=== PATIENT | female | born 1990 | race Asian ===

== ENCOUNTER 2020-02-25 03:20 | Inpatient (IN) ==
[2020-02-25] MEDS: LACTATED RINGER'S 1,000 ML IV PRN ×2 (03:37→07:41)
[2020-02-25] MEDS ORDERED: fentaNYL citrate 100 MCG/2 ML VIAL ONE (03:45)
[2020-02-25] MEDS ORDERED: ePHEDrine sulfate 50 MG/ML AMP ONE (03:45)
[2020-02-25] MEDS ORDERED: BUPIVACAINE 0.25% 30 ML VIAL ONE (03:45)
[2020-02-25] MEDS ORDERED: fentaNYL 2MCG/ML ROPIV 1.25MG/ML 100 ML BAG EPI ONE (03:46)
[2020-02-25] MEDS ORDERED: OXYTOCIN 30 UNITS/500 ML BAG IV PRN ×2 (03:48→15:14)
--- NOTE | 2020-02-25 03:48 | History & Physical Report ---
Date of Service February 25, 2020 Assessment & Plan (1) History of myomectomy: (2) Diet controlled gestational diabetes mellitus (GDM), antepartum: (3) Supervision of normal first : (4) Normal labor: admit, iv, labs. desires epidural. check bsg q2hr. anticip . fhts categ 1. (5) SROM (spontaneous rupture of membranes): History of Present Illness Chief Complaint: SROM at 120am 02/25/20 Primary Care Provider: ROBINA Mendez 29yo at 40wks egmanuela presents to L&D with above cc. On arrival she states since i spoke to her on the phone she has begun with painful contractions as well as leaking clear fluid. Some pink spotting. +FM. PNC c/b 1. h/o myomectomy, ok for vaginal delivery 2. GDM diet controlled PNL rh pos, ri, gbs neg Allergies Allergy/AdvReac Type Severity Reaction Status Date / Time No Known Allergies Allergy Verified 02/23/20 13:56 Home Medications Home Medications Medication Instructions Recorded Confirmed Type prenat.vits,leland,sgl-njgw-cicdm 1 tab PO DAILY 07/07/19 02/23/20 History calcium acetate PO 11/10/19 02/23/20 History breast pump #1 12/08/19 02/23/20 Rx breast pump #1 12/08/19 02/23/20 Rx acetone (urine) test #50 12/22/19 02/23/20 Rx blood sugar diagnostic #150 12/22/19 02/23/20 Rx blood-glucose meter #1 12/22/19 02/23/20 Rx lancets 33 gauge #150 12/22/19 02/23/20 Rx Patient History Medical History (Updated 02/25/20 @ 03:47 by Kathia Delacruz MD, FACOG) Menorrhagia Menstrual cramps Surgical History (Updated 02/25/20 @ 03:47 by Kathia Delacruz MD, FACOG) History of myomectomy S/P wisdom tooth extraction Family History Denies family history of Ovarian cancer Prostate cancer Heart disease Breast cancer Colorectal cancer Social History (Updated 07/07/19 @ 14:08 by Nina Tang) Smoking Status: Never smoker Second Hand Exposure: No; Hx Alcohol Use: No Hx Substance Use: No marital status: marital status details: Mesha Machuca (35) [phone] Current Living Situation: Spouse Current Living Situation Comment: lives with spouse, cat-spouse changing litter current occupational status: employed 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[employer], Regularly: Yes Physical Activity Frequency: Daily Review of Systems per hpi Physical Exam Constitutional: WD/WN, vitals as above Respiratory: normal respiratory effort, lungs clear to auscultation Cardiovascular: Rate/Rhythm: regular rate and regular rhythm Gastrointestinal (Abdomen): soft gravid nt Musculoskeletal: no edema nontender calves Neurologic: grossly normal Psychiatric: A+Ox3, euthymic affect Genitourinary: OB Exam Abdomen: + estimated weight (7#3oz) Manual OB Exam: + cervical dilation (7), + cervical effacement (80), + station -2 and + amniotic fluid (SSE, +pool, ) clear, nitrazine positive and ferning present OB Exam Monitor Tracing: + external FHT monitor used (150 mod variability, reactive), + external uterine monitor used (q2-3), + category I and + normal FHT variability Coding Level of Care Code None Diagnoses History of myomectomy Z98.890 Diet controlled gestational diabetes mellitus (GDM), antepartum O24.410 Supervision of normal first Z34.00 Normal labor O80; Z37.9 SROM (spontaneous rupture of membranes)
[2020-02-25 04:06] LABS: Hematocrit (blood only) 41.3 % (37-47); Hemoglobin 13.9 g/dL (12.0-16.0); Mean Corpuscular Hemoglobin 30.5 pg (25-34); Mean Corpuscular Volume 90.6 fL (80-100); Mean Platelet Volume 10.4 fL (7.4-10.4); Platelet Count 230 K/uL (130-400); RDW Standard Deviation 42.7 fL (36.4-46.3); Red Blood Count 4.56 M/uL (4.2-5.4); White Blood Count 8.19 K/uL (4.8-10.8)
[2020-02-25 04:10] LABS: Mean Corpuscular Hgb Conc 33.7 g/dL (32-36)
--- NOTE | 2020-02-25 04:55 | Anesthesiology Consultation ---
Date of Service February 25, 2020 Assessment & Plan Chart Review Chart Review: Acceptable Risk for Labor Epidural Consults Requested none History Height/Weight Height: 5 ft Weight: 66.678 kg Allergies Allergy/AdvReac Type Severity Reaction Status Date / Time No Known Allergies Allergy Verified 02/23/20 13:56 Medications Home Medications Medication Instructions Recorded Confirmed Last Taken breast pump #1 12/08/19 02/23/20 Unknown breast pump #1 12/08/19 02/23/20 Unknown acetone (urine) test #50 12/22/19 02/23/20 Unknown blood sugar diagnostic #150 12/22/19 02/23/20 Unknown blood-glucose meter #1 12/22/19 02/23/20 Unknown lancets 33 gauge #150 12/22/19 02/23/20 Unknown vit no.111-[id number] 1 tab PO DAILY 02/25/20 02/25/20 02/24/20 08:00 [ Vitamin] Active Medications Generic Name Dose Route Start Last Admin Trade Name Freq PRN Reason Stop Dose Admin Lactated Ringer's 1,000 mls @ 125 mls/hr 02/25/20 03:48 02/25/20 03:37 Lr IV 02/27/20 03:47 999 mls/hr .Q8H PRN Administration L&D Protocol Protocol Past Medical History Medical History Menorrhagia Menstrual cramps Past Family History Family History Denies family history of Ovarian cancer Prostate cancer Heart disease Breast cancer Colorectal cancer Past Surgical History Surgical History History of myomectomy S/P wisdom tooth extraction Social History Smoking Status: Never smoker Do You Dip or Chew Tobacco: No Hx Alcohol Use: No Hx Substance Use: No substance use type: does not use Physical Exam Vital Signs Last Vital Signs Temp 37.1 C 02/25/20 03:34 Pulse 101 H 02/25/20 04:52 Resp 18 02/25/20 04:45 BP 128/78 02/25/20 04:52 Pulse Ox 97 02/25/20 04:52 Testing Laboratory Results 02/25/20 03:56 02/25/20 03:47 POC Glucose 92
[2020-02-25] MEDS ORDERED: DiphenhydrAMINE HCL 50 MG/ML VIAL IV PRN (04:57)
[2020-02-25] MEDS ORDERED: NALOXONE HCL 0.4 MG/1 ML VIAL/CARP IV PRN (04:57)
[2020-02-25] MEDS ORDERED: ePHEDrine sulfate 50 MG/ML AMP IV PRN (04:57)
[2020-02-25] MEDS ORDERED: fentaNYL 2MCG/ML ROPIV 1.25MG/ML 100 ML BAG EPI PRN (04:57)
[2020-02-25] MEDS ORDERED: NALOXONE HCL 1 MG in SODIUM CHLORIDE 0.9% 1000ML 1,000 ML IV PRN (04:57)
--- NOTE | 2020-02-25 09:55 | Labor Progress Brief Note ---
Date of Service February 25, 2020 Subjective Reason For Note: Routine Evaluation nurse states pt is complete Assessment & Plan (1) Diet controlled gestational diabetes mellitus (GDM), antepartum: (2) Normal labor: begin 2nd stage. fhts categ 1, early decels. anticip . Admission and Anticipated Discharge Date Admission Date: February 25, 2020 Physical Exam Constitutional: WD/WN, vitals as above Genitourinary: Manual OB Exam: + cervical dilation 10 cm, + cervical effacement 100% and + station + 2 OB Exam Monitor Tracing: + external FHT monitor used (150 mod variability ), + external uterine monitor used (q2), + category I and + early decelerations present Results & Data ([facility]) Vital Signs (Past 12 Hours) Vital Signs Temp Pulse Resp BP Pulse Ox 02/25/20 09:47 128 H 98 02/25/20 09:46 117 H 139/96 02/25/20 09:42 112 H 98 02/25/20 09:37 110 H 99 02/25/20 09:32 109 H 98 02/25/20 09:31 100 H 137/87 02/25/20 09:27 112 H 98 02/25/20 09:22 103 H 97 02/25/20 09:17 96 H 97 02/25/20 09:16 96 H 135/91 02/25/20 09:12 108 H 98 02/25/20 09:07 107 H 98 02/25/20 09:02 102 H 98 02/25/20 09:01 107 H 135/89 02/25/20 08:57 118 H 98 02/25/20 08:52 106 H 98 02/25/20 08:51 18 02/25/20 08:47 90 117/58 L 97 02/25/20 08:42 91 H 98 02/25/20 08:40 99.5 F 18 02/25/20 08:37 109 H 97 02/25/20 08:32 106 H 97 02/25/20 08:31 112 H 117/73 02/25/20 08:30 18 02/25/20 08:27 104 H 97 02/25/20 08:22 116 H 98 02/25/20 08:17 103 H 97 02/25/20 08:16 98 H 127/78 02/25/20 08:12 95 H 97 02/25/20 08:07 102 H 96 02/25/20 08:02 101 H 119/84 97 02/25/20 08:00 18 02/25/20 07:57 102 H 97 02/25/20 07:52 95 H 97 02/25/20 07:47 98 H 98 02/25/20 07:46 90 120/82 02/25/20 07:42 96 H 97 02/25/20 07:37 104 H 97 02/25/20 07:32 92 H 18 98 02/25/20 07:31 90 147/80 H 02/25/20 07:27 95 H 98 02/25/20 07:22 98 H 97 02/25/20 07:18 94 H 117/62 02/25/20 07:17 88 97 02/25/20 07:12 104 H 98 02/25/20 07:07 93 H 97 02/25/20 07:02 100 H 126/78 97 02/25/20 07:00 98.6 F 18 02/25/20 06:59 20 02/25/20 06:57 102 H 99 02/25/20 06:52 101 H 97 02/25/20 06:47 94 H 121/74 97 02/25/20 06:42 92 H 97 02/25/20 06:37 93 H 98 02/25/20 06:35 97 H 94 02/25/20 06:32 102 H 118/71 97 02/25/20 06:30 18 02/25/20 06:27 92 H 98 02/25/20 06:22 98 H 98 02/25/20 06:17 94 H 119/72 97 02/25/20 06:12 89 97 02/25/20 06:07 89 96 02/25/20 06:02 92 H 97 02/25/20 06:01 100 H 126/75 02/25/20 06:00 98.8 F 20 02/25/20 05:57 83 97 02/25/20 05:52 95 H 98 02/25/20 05:47 95 H 98 02/25/20 05:46 89 120/74 02/25/20 05:42 94 H 97 02/25/20 05:37 82 96 02/25/20 05:32 95 H 98 02/25/20 05:31 93 H 121/77 0920 05:30 20 02/25/20 05:27 116 H 98 02/25/20 05:22 102 H 99 02/25/20 05:17 117 H 113/87 99 02/25/20 05:12 93 H 139/96 99 02/25/20 05:07 96 H 98 02/25/20 05:06 102 H 119/84 02/25/20 05:02 91 H 98 02/25/20 05:01 102 H 126/83 02/25/20 04:59 98.4 F 20 02/25/20 04:57 96 H 98 02/25/20 04:55 18 02/25/20 04:54 80 134/79 02/25/20 04:52 101 H 128/78 97 02/25/20 04:50 85 20 131/75 02/25/20 04:48 83 125/77 02/25/20 04:47 97 H 98 02/25/20 04:46 82 121/75 02/25/20 04:45 18 02/25/20 04:44 96 H 126/80 02/25/20 04:42 94 H 128/79 98 02/25/20 04:40 108 H 20 135/81 02/25/20 04:38 96 H 129/84 02/25/20 04:37 98 H 98 02/25/20 04:36 81 132/87 02/25/20 04:35 20 02/25/20 04:32 106 H 98 02/25/20 04:27 104 H 99 02/25/20 03:47 94 H 130/79 02/25/20 03:34 98.8 F 94 H 18 130/79 Coding Level of Care Code None Diagnoses Diet controlled gestational diabetes mellitus (GDM), antepartum O24.410 Normal labor O80; Z37.9
--- NOTE | 2020-02-25 12:21 | Labor Progress Brief Note ---
Date of Service February 25, 2020 Subjective Reason For Note: Routine Evaluation feeling more pressure Assessment & Plan (1) Diet controlled gestational diabetes mellitus (GDM), antepartum: (2) Normal labor: making progress with effective pushing at times but sometimes pushing less effective. enc change in position and cont 2nd stage. fhts categ 1 Admission and Anticipated Discharge Date Admission Date: February 25, 2020 Physical Exam Genitourinary: Manual OB Exam: + cervical dilation 10 cm, + cervical effacement 100% and + station + 2 (with pushing) OB Exam Monitor Tracing: + external FHT monitor used (150 mod variability), + external uterine monitor used (q1-2), + category I and + normal FHT variability Results & Data ([facility]) Vital Signs (Past 12 Hours) Vital Signs Temp Pulse Resp BP Pulse Ox 02/25/20 12:18 131 H 96 02/25/20 12:13 133 H 96 02/25/20 12:09 119 H 94 02/25/20 12:08 121 H 96 02/25/20 12:04 121 H 86 L 02/25/20 12:03 112 H 95 02/25/20 12:02 101 H 123/78 02/25/20 11:58 115 H 80 L 02/25/20 11:53 99.7 F H 126 H 94 02/25/20 11:50 20 02/25/20 11:48 119 H 94 02/25/20 11:47 95 H 130/61 93 02/25/20 11:43 132 H 93 02/25/20 11:41 180 H 85 L 02/25/20 11:40 18 02/25/20 11:38 110 H 96 02/25/20 11:33 138 H 96 02/25/20 11:31 106 H 133/59 L 02/25/20 11:30 18 02/25/20 11:28 128 H 96 02/25/20 11:23 117 H 94 02/25/20 11:22 112 H 94 02/25/20 11:20 18 02/25/20 11:18 116 H 96 02/25/20 11:13 144 H 93 02/25/20 11:11 107 H 88 L 02/25/20 11:10 18 02/25/20 11:08 104 H 97 02/25/20 11:05 112 H 91 02/25/20 11:03 124 H 95 02/25/20 11:01 115 H 115/58 L 02/25/20 11:00 122 H 18 93 02/25/20 10:58 126 H 95 02/25/20 10:53 113 H 95 02/25/20 10:50 20 02/25/20 10:48 138 H 95 02/25/20 10:47 123 H 137/68 02/25/20 10:46 99.9 F H 169 H 18 186/118 H 02/25/20 10:43 129 H 95 02/25/20 10:41 132 H 91 02/25/20 10:40 20 02/25/20 10:38 126 H 18 92 02/25/20 10:36 117 H 127/74 02/25/20 10:34 130 H 90 02/25/20 10:33 127 H 96 02/25/20 10:31 137 H 155/111 H 02/25/20 10:29 127 H 94 02/25/20 10:27 130 H 95 02/25/20 10:22 155 H 96 02/25/20 10:20 20 02/25/20 10:17 139 H 93 02/25/20 10:16 142 H 131/88 02/25/20 10:12 121 H 98 02/25/20 10:09 148 H 137/89 02/25/20 10:07 126 H 95 02/25/20 10:06 153 H 94 02/25/20 10:02 127 H 93 02/25/20 10:00 117 H 94 02/25/20 09:57 134 H 96 02/25/20 09:56 99.7 F H 18 02/25/20 09:52 148 H 98 02/25/20 09:50 18 02/25/20 09:47 128 H 98 02/25/20 09:46 117 H 139/96 02/25/20 09:42 112 H 98 02/25/20 09:37 110 H 99 02/25/20 09:32 109 H 98 02/25/20 09:31 100 H 137/87 02/25/20 09:27 112 H 98 02/25/20 09:22 103 H 97 02/25/20 09:20 16 02/25/20 09:17 96 H 97 02/25/20 09:16 96 H 135/91 09/27/20 09:12 108 H 98 02/25/20 09:07 107 H 98 02/25/20 09:02 102 H 98 02/25/20 09:01 107 H 135/89 02/25/20 08:57 118 H 98 02/25/20 08:52 106 H 98 02/25/20 08:51 18 02/25/20 08:47 90 117/58 L 97 02/25/20 08:42 91 H 98 02/25/20 08:40 99.5 F 18 02/25/20 08:37 109 H 97 02/25/20 08:32 106 H 97 02/25/20 08:31 112 H 117/73 02/25/20 08:30 18 02/25/20 08:27 104 H 97 02/25/20 08:22 116 H 98 02/25/20 08:17 103 H 97 02/25/20 08:16 98 H 127/78 02/25/20 08:12 95 H 97 02/25/20 08:07 102 H 96 02/25/20 08:02 101 H 119/84 97 02/25/20 08:00 18 02/25/20 07:57 102 H 97 02/25/20 07:52 95 H 97 02/25/20 07:47 98 H 98 02/25/20 07:46 90 120/82 02/25/20 07:42 96 H 97 02/25/20 07:37 104 H 97 02/25/20 07:32 92 H 18 98 02/25/20 07:31 90 147/80 H 02/25/20 07:27 95 H 98 02/25/20 07:22 98 H 97 02/25/20 07:18 94 H 117/62 02/25/20 07:17 88 97 02/25/20 07:12 104 H 98 02/25/20 07:07 93 H 97 02/25/20 07:02 100 H 126/78 97 02/25/20 07:00 98.6 F 18 02/25/20 06:59 20 02/25/20 06:57 102 H 99 02/25/20 06:52 101 H 97 02/25/20 06:47 94 H 121/74 97 02/25/20 06:42 92 H 97 02/25/20 06:37 93 H 98 02/25/20 06:35 97 H 94 02/25/20 06:32 102 H 118/71 97 02/25/20 06:30 18 02/25/20 06:27 92 H 98 02/25/20 06:22 98 H 98 02/25/20 06:17 94 H 119/72 97 02/25/20 06:12 89 97 02/25/20 06:07 89 96 02/25/20 06:02 92 H 97 02/25/20 06:01 100 H 126/75 02/25/20 06:00 98.8 F 20 02/25/20 05:57 83 97 02/25/20 05:52 95 H 98 02/25/20 05:47 95 H 98 02/25/20 05:46 89 120/74 02/25/20 05:42 94 H 97 02/25/20 05:37 82 96 02/25/20 05:32 95 H 98 02/25/20 05:31 93 H 121/77 02/25/20 05:30 20 02/25/20 05:27 116 H 98 02/25/20 05:22 102 H 99 02/25/20 05:17 117 H 113/87 99 02/25/20 05:12 93 H 139/96 99 02/25/20 05:07 96 H 98 02/25/20 05:06 102 H 119/84 02/25/20 05:02 91 H 98 02/25/20 05:01 102 H 126/83 02/25/20 04:59 98.4 F 02/25/20 04:57 96 H 98 02/25/20 04:55 18 02/25/20 04:54 80 134/79 02/25/20 04:52 101 H 128/78 97 02/25/20 04:50 85 20 131/75 02/25/20 04:48 83 125/77 02/25/20 04:47 97 H 98 02/25/20 04:46 82 121/75 02/25/20 04:45 18 02/25/20 04:44 96 H 126/80 02/25/20 04:42 94 H 128/79 98 02/25/20 04:40 108 H 20 135/81 02/25/20 04:38 96 H 129/84 02/25/20 04:37 98 H 98 02/25/20 04:36 81 132/87 02/25/20 04:35 20 02/25/20 04:32 106 H 98 02/25/20 04:27 104 H 99 02/25/20 03:47 94 H 130/79 02/25/20 03:34 98.8 F 94 H 18 130/79 Coding Level of Care Code None Diagnoses Diet controlled gestational diabetes mellitus (GDM), antepartum O24.410 Normal labor O80; Z37.9
--- NOTE | 2020-02-25 12:43 | Labor Progress Brief Note ---
Date of Service February 25, 2020 Subjective Reason For Note: Routine Evaluation pt not feeling much rectal pressure Assessment & Plan (1) Diet controlled gestational diabetes mellitus (GDM), antepartum: (2) Normal labor: will cont 2nd stage. fhts categ 2. dec epidural settings to see if pt can feel more urge to push. Admission and Anticipated Discharge Date Admission Date: February 25, 2020 Physical Exam Constitutional: WD/WN, vitals as above Genitourinary: OB Exam Monitor Tracing: + external FHT monitor used (150 mod variability) assessed pt pushing. 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 does move baby at times and does admit can't always feel where the pressure is. we had asked her before about dec epidural settings and now agrees. Results & Data ([facility]) Vital Signs (Past 12 Hours) Vital Signs Temp Pulse Resp BP Pulse Ox 02/25/20 12:34 132 H 97 02/25/20 12:28 138 H 94 02/25/20 12:23 136 H 94 02/25/20 12:18 131 H 96 02/25/20 12:13 133 H 96 02/25/20 12:09 119 H 94 02/25/20 12:08 121 H 96 02/25/20 12:04 121 H 86 L 02/25/20 12:03 112 H 95 02/25/20 12:02 101 H 123/78 02/25/20 12:00 20 02/25/20 11:58 115 H 80 L 02/25/20 11:53 99.7 F H 126 H 94 02/25/20 11:50 20 02/25/20 11:48 119 H 94 02/25/20 11:47 95 H 130/61 93 02/25/20 11:43 132 H 93 02/25/20 11:41 180 H 85 L 02/25/20 11:40 18 02/25/20 11:38 110 H 96 02/25/20 11:33 138 H 96 02/25/20 11:31 106 H 133/59 L 02/25/20 11:30 18 02/25/20 11:28 128 H 96 02/25/20 11:23 117 H 94 02/25/20 11:22 112 H 94 02/25/20 11:20 18 02/25/20 11:18 116 H 96 02/25/20 11:13 144 H 93 02/25/20 11:11 107 H 88 L 02/25/20 11:10 18 02/25/20 11:08 104 H 97 02/25/20 11:05 112 H 91 02/25/20 11:03 124 H 95 02/25/20 11:01 115 H 115/58 L 02/25/20 11:00 122 H 18 93 02/25/20 10:58 126 H 95 02/25/20 10:53 113 H 95 02/25/20 10:50 20 02/25/20 10:48 138 H 95 02/25/20 10:47 123 H 137/68 02/25/20 10:46 99.9 F H 169 H 18 186/118 H 02/25/20 10:43 129 H 95 02/25/20 10:41 132 H 91 02/25/20 10:40 20 02/25/20 10:38 126 H 18 92 02/25/20 10:36 117 H 127/74 02/25/20 10:34 130 H 90 02/25/20 10:33 127 H 96 02/25/20 10:31 137 H 155/111 H 02/25/20 10:29 127 H 94 02/25/20 10:27 130 H 95 02/25/20 10:22 155 H 96 02/25/20 10:20 20 02/25/20 10:17 139 H 93 02/25/20 10:16 142 H 131/88 02/25/20 10:12 121 H 98 02/25/20 10:09 148 H 137/89 02/25/20 10:07 126 H 95 02/25/20 10:06 153 H 94 02/25/20 10:02 127 H 93 02/25/20 10:00 117 H 94 02/25/20 09:57 134 H 96 02/25/20 09:56 99.7 F H 18 02/25/20 09:52 148 H 98 02/25/20 09:50 18 02/25/20 09:47 128 H 98 02/25/20 09:46 117 H 139/96 02/25/20 09:42 112 H 98 02/25/20 09:37 110 H 99 02/25/20 09:32 109 H 98 02/25/20 09:31 100 H 137/87 02/25/20 09:27 112 H 98 02/25/20 09:22 103 H 97 02/25/20 09:20 16 02/25/20 09:17 96 H 97 02/25/20 09:16 96 H 135/91 02/25/20 09:12 108 H 98 02/25/20 09:07 107 H 98 02/25/20 09:02 102 H 98 02/25/20 09:01 107 H 135/89 02/25/20 08:57 118 H 98 02/25/20 08:52 106 H 98 02/25/20 08:51 18 02/25/20 08:47 90 117/58 L 97 02/25/20 08:42 91 H 98 02/25/20 08:40 99.5 F 18 02/25/20 08:37 109 H 97 02/25/20 08:32 106 H 97 02/25/20 08:31 112 H 117/73 02/25/20 08:30 18 02/25/20 08:27 104 H 97 02/25/20 08:22 116 H 98 02/25/20 08:17 103 H 97 02/25/20 08:16 98 H 127/78 02/25/20 08:12 95 H 97 02/25/20 08:07 102 H 96 02/25/20 08:02 101 H 119/84 97 02/25/20 08:00 18 02/25/20 07:57 102 H 97 02/25/20 07:52 95 H 97 02/25/20 07:47 98 H 98 02/25/20 07:46 90 120/82 02/25/20 07:42 96 H 97 02/25/20 07:37 104 H 97 02/25/20 07:32 92 H 18 98 02/25/20 07:31 90 147/80 H 02/25/20 07:27 95 H 98 02/25/20 07:22 98 H 97 02/25/20 07:18 94 H 117/62 02/25/20 07:17 88 97 02/25/20 07:12 104 H 98 02/25/20 07:07 93 H 97 02/25/20 07:02 100 H 126/78 97 02/25/20 07:00 98.6 F 18 02/25/20 06:59 20 02/25/20 06:57 102 H 99 02/25/20 06:52 101 H 97 02/25/20 06:47 94 H 121/74 97 02/25/20 06:42 92 H 97 02/25/20 06:37 93 H 98 02/25/20 06:35 97 H 94 02/25/20 06:32 102 H 118/71 97 02/25/20 06:30 18 02/25/20 06:27 92 H 98 02/25/20 06:22 98 H 98 02/25/20 06:17 94 H 119/72 97 02/25/20 06:12 89 97 02/25/20 06:07 89 96 02/25/20 06:02 92 H 97 02/25/20 06:01 100 H 126/75 02/25/20 06:00 98.8 F 20 02/25/20 05:57 83 97 02/25/20 05:52 95 H 98 02/25/20 05:47 95 H 98 02/25/20 05:46 89 120/74 02/25/20 05:42 94 H 97 02/25/20 05:37 82 96 02/25/20 05:32 95 H 98 02/25/20 05:31 93 H 121/77 02/25/20 05:30 20 02/25/20 05:27 116 H 98 02/25/20 05:22 102 H 99 02/25/20 05:17 117 H 113/87 99 02/25/20 05:12 93 H 139/96 99 02/25/20 05:07 96 H 98 02/25/20 05:06 102 H 119/84 02/25/20 05:02 91 H 98 02/25/20 05:01 102 H 126/83 02/25/20 04:59 98.4 F 20 02/25/20 04:57 96 H 98 02/25/20 04:55 18 02/25/20 04:54 80 134/79 02/25/20 04:52 101 H 128/78 97 02/25/20 04:50 85 20 131/75 02/25/20 04:48 83 125/77 02/25/20 04:47 97 H 98 02/25/20 04:46 82 121/75 09/27/20 04:45 18 02/25/20 04:44 96 H 126/80 02/25/20 04:42 94 H 128/79 98 02/25/20 04:40 108 H 20 135/81 02/25/20 04:38 96 H 129/84 02/25/20 04:37 98 H 98 02/25/20 04:36 81 132/87 02/25/20 04:35 20 02/25/20 04:32 106 H 98 02/25/20 04:27 104 H 99 02/25/20 03:47 94 H 130/79 02/25/20 03:34 98.8 F 94 H 18 130/79 Coding Level of Care Code None Diagnoses Diet controlled gestational diabetes mellitus (GDM), antepartum O24.410 Normal labor O80; Z37.9
[2020-02-25] MEDS ORDERED: ACETAMINOPHEN 325 MG TAB PO PRN (14:06)
[2020-02-25] MEDS ORDERED: OXYCODONE/ACETAMINOPHEN 5mg/325mg TAB PO PRN (14:06)
--- NOTE | 2020-02-25 14:11 | Delivery Summary ---
Vaginal Delivery Summary Date of Service February 25, 2020 The patient dilated to complete and pushed for almost 4hr when asked to be seen for evaluation. She had been evaluated to be likely LOP and was pushing in all positions to include knee chest. On exam c/c/+2, +3 with pushing to caput. Maternal efforts better. FHTs categ 2. Offered continued pushing vs. vacuum assistance vs. section. Risks of each reviewed. Patient does not want section but does want attempt at vacuum assistance. She was readied for delivery and the bladder was drained for 200cc under sterile conditions. The kiwi vacuum was applied and in 4 contractions with 4 pulls and one popoff the cephalic was delivered. A mediolateral episiotomy had been cut prior to the use of the vacuum for the 4th time. The cephalic delivered and mouth and nose bulb suctioned at perineum. Body cord x 1 noted and delivered through. Shoulders and body delivered with ease. was vigorous and crying at . Cord clamped at 30 seconds of life and to maternal abdomen where the cord was then doubly clamped and cut. Placenta delivered spontaneously and intact, three- vessel cord. Hemostasis achieved with dilute pitocin and uterine massage. Laceration assessed and was notably a 3rd degree laceration. Repaired in multiple layers with 2-0 and 3-0 vicryl in layers. Cervix and sulci intact. EBL 400 cc. Mother and baby stable recovery. [facility] [place] Vaginal Delivery Charge Vaginal Delivery Codes: 66786 global code for the antepartum, delivery, and post-
--- NOTE | 2020-02-25 14:21 | Anesthesia Procedure Note ---
Date of Service February 25, 2020 Anesthesia Post Epidural Note Vital Signs Vital Signs: Temp Pulse Resp BP Pulse Ox 37.6 C H 106 H 18 110/67 96 02/25/20 13:51 02/25/20 14:16 02/25/20 13:51 02/25/20 14:16 02/25/20 14:14 Notes Mental Status: alert / awake / arousable Airway Patency, RR, SpO2: stable & adequate BP & HR: stable & adequate Hydration State: stable & adequate Anesthetic Complications: no major complications apparent and Pt Satisfied with anesthetic care Epidural: Removed without complications
[2020-02-25] MEDS ORDERED: BENZOCAINE 20% AER SPR 82.5 GM CAN EXT PRN (15:14)
[2020-02-25] MEDS ORDERED: DIPHTHERIA/TETANUS/PERTUSSIS 0.5 ML SYR/VIAL IM ONE (15:14)
[2020-02-25] MEDS ORDERED: SUPERCREAM 0.870% 15 GM JAR EXT PRN (15:14)
[2020-02-25] MEDS ORDERED: HYDROCORTISONE ACETATE 25 MG SUPP PR PRN (15:14)
[2020-02-25] MEDS: IBUPROFEN 600 MG TAB PO PRN ×2 (15:19→22:11)
[2020-02-25] MEDS ORDERED: OXYTOCIN 20 UNITS in LACTATED RINGER'S 1,000 ML IV SCH (15:30)
[2020-02-25 15:40] LABS: Cord Venous Blood HCO3 22 mmol/L (18.4-26.8); Cord Venous Blood PCO2 40 mmHg (30.4-57.2); Cord Venous Blood PO2 33 mmHg (14.1-43.3); Cord Venous Blood pH 7.36 (7.20-7.44)
[2020-02-25] MEDS: DOCUSATE SODIUM 100 MG CAP PO SCH (20:55)
--- NOTE | 2020-02-26 07:03 | Obstetrical Progress Note ---
Date of Service February 26, 2020 Assessment & Plan (1) Vacuum-assisted vaginal delivery: doing well. stable. routine pp check. breast feeding, rh pos, ri. Subjective Ambulation: ambulating normally Voiding: no voiding problems Diet Tolerance:: regular diet Lochia:: Small Feeding Type:: breast feeding Physical Exam Constitutional WD/WN, vitals as above Respiratory normal respiratory effort, lungs clear to auscultation Cardiovascular Rate/Rhythm: regular rate and regular rhythm Gastrointestinal (Abdomen) Inspection/Auscultation: abdomen normal to inspection Percussion/Palpation: abdomen soft Fundus firm 1-2cm down Musculoskeletal nt calves Neurologic grossly normal Psychiatric A+Ox3, euthymic affect Results & Data ([facility]) Vital Signs (Past 12 Hours) Vital Signs Temp Pulse Resp BP Pulse Ox 02/26/20 04:05 97.9 F 84 16 91/56 L 98 02/25/20 23:10 98.2 F 96 H 16 93/57 L 99
[2020-02-26 09:01] LABS: Hematocrit (blood only) 25.4 % (37-47); Hemoglobin 8.5 g/dL (12.0-16.0)
[2020-02-26] MEDS: DOCUSATE SODIUM 100 MG CAP PO SCH ×2 (09:12→21:32)
[2020-02-26] MEDS ORDERED: LACTATED RINGER'S 500 ML IV ONE (12:01)
[2020-02-26] MEDS: IBUPROFEN 600 MG TAB PO PRN ×2 (16:00→23:28)
--- NOTE | 2020-02-27 05:03 | Obstetrical Progress Note ---
Date of Service February 27, 2020 Assessment & Plan (1) : S/p VAVD Day 2 - Feels well today. Eating well, voiding well, ambulating well. - Pain well-controlled with ibuprofen 600mg Q4H PRN. - Vital signs reviewed and WNL. - Hemoglobin reviewed. 13.9 --> 8.5 (yesterday). - Blood Type: O+, antibody negative, GBS negative, Rubella Immune, COVID-19 negative - Continue routine post- care: encourage ambulation, monitor and control pain with Motrin PRN, continue regular OB diet, monitor lochia - Encourage breast feeding. Counseled on re-latching if having nipple pain with initial latch. - Pt counseled on discharge instructions today - After discharge, will have 6-wk follow-up with Dr. Delacruz Admission and Anticipated Discharge Date Admission Date: February 25, 2020 Supervising Physician Co-Signing Physician Notes Resident Physician Supervision Note: I interviewed and examined the patient. Discussed with Dr. White and agree with findings and plan as documented in the note. Any exceptions or clarifications are listed here: Patient had dizzy episode yesterday which resolved with fluid bolus. No further s/s of anemia, tachycardia is stable and somewhat improved, so labwork deferred. Pt aware to continue bowel regimen until laceration is well healed Documented By: Lexy Morocho MD Subjective HPI Arabella Oneil is a 29 y/o female who is PPD 2 VAVD at 40 weeks. She reports feeling well overall this morning. No abdominal cramping and 0-2/10 pain well managed on analgesics. Voiding well. Tolerating meals overnight without difficulty. Patient has been able to ambulate some. passing gas and had bowel movement. Has persistent lochia with some improvement this morning. Currently with occasional pain when baby latches. Review of Systems Review of Systems: ROS Denies fever or chills. Denies shortness of breath or cough. Denies chest pain. Denies breast pain. Denies dysuria. Denies leg pain or leg swelling. Physical Exam Physical Exam: PE General: Alert, oriented. No acute distress. Cardiac: Regular rate and rhythm. No murmurs. Respiratory: Clear to auscultation bilaterally a/p, no wheezes/rales/rhonchi. No increased work of breathing. Symmetrical chest rise. No respiratory distress. Abdomen: Soft, nontender, nondistended. Bowel sounds present. Uterus: Uterine fundus firm, palpable 2 cm below umbilicus. Lower Extremities: No lower extremity edema or swelling. No deep calf pain. Anna's negative bilaterally. Results & Data ([facility]) Vital Signs (Past 12 Hours) Vital Signs Temp Pulse Resp BP 02/26/20 23:25 36.8 C 93 H 16 105/68 02/26/20 19:50 37.1 C 114 H 16 109/74 Resident Activity Tracking Resident Involvement: Resident Care Provided Care Provided: OB Delivery
[2020-02-27] MEDS: DOCUSATE SODIUM 100 MG CAP PO SCH (08:57)
[2020-02-27] MEDS: IBUPROFEN 600 MG TAB PO PRN (08:57)
== END 2020-02-27 14:35 | disposition home or self-care (01) | DRG 768 ==
LOC: OPB 03:20 → 4S1 03:23 → 4S2 17:05